=== PATIENT | male | born 2000 | race African-American/Black ===

== ENCOUNTER 2023-01-01 22:35 | Emergency (ER) | payer SELFPAY ==
[~2023-01-01] VITALS: Ht 177.8 cm; Wt 55.0 kg
[2023-01-01 22:39] VITALS: BP 132/84; PULSE 90; RESP 16; TEMP 98.3; O2SAT 100
== END 2023-01-02 00:28 | disposition home or self-care (01) ==
LOC: ER 22:35
DX: F41.9 Anxiety disorder, unspecified (principal); F12.10 Cannabis abuse, uncomplicated
CPT/HCPCS: 99283